=== PATIENT | male | born 1995 | race Caucasian/White ===

== ENCOUNTER 2020-02-07 12:11 | Emergency (ER) | payer OTHER ==
[2020-02-07 12:18] VITALS: BP 150/84
[2020-02-07] MEDS ORDERED: CLINDAMYCIN 150 MG CAPSULE PO STA (12:52)
[2020-02-07] MEDS ORDERED: DEXAMETHASONE 10 MG/ML VIAL IM STA (12:52)
--- NOTE | 2020-02-07 12:55 | ED Physician Documentation ---
History of Present Illness - Stated complaint Stated Complaint: SORE THROAT - Chief complaint Chief Complaint: Heent - History obtained from History obtained from: Patient - Additonal information Additional information: PT presents to the ED c/o ST for the past 5 days. No F/C, abd pain, or NV. No rhinorrhea, cough, or headache. [place] and tested for COVID and strep, but has not heard back regarding results yet. Pt states he's otherwise healthy. No trouble breathing. Pt states it hurts to swallow, but that he's been able to take ibuprofen tabs and drink water. Pt states he has not had any sick contacts with strep, flu, covid, or mono. No other complaints at this time. Review of Systems Ten Systems: 10 systems reviewed and negative Constitutional: reports: Reviewed and negative Eyes: reports: Reviewed and negative Ears: reports: Reviewed and negative Nose: reports: Reviewed and negative Throat: reports: Sore throat Cardiac: reports: Reviewed and negative Respiratory: reports: Reviewed and negative GI: reports: Reviewed and negative : reports: Reviewed and negative Skin: reports: Reviewed and negative Musculoskeletal: reports: Reviewed and negative Neurologic: reports: Reviewed and negative Psychiatric: reports: Reviewed and negative Endocrine: reports: Reviewed and negative Immunocompromised: reports: Reviewed and negative PD PAST MEDICAL HISTORY - Past Medical History Past Medical History: No - Past Surgical History Past Surgical History: Yes General: Appendectomy - Present Medications Home Medications: Ambulatory Orders Medication Instructions Recorded Confirmed Clindamycin HCl [Clindamycin 300MG 300 mg PO Q6H #28 capsule 02/07/20 CAP] predniSONE [Prednisone] 60 mg PO DAILY 5 Days #15 tablet 02/07/20 - Allergies Allergies/Adverse Reactions: Allergies Allergy/AdvReac Type Severity Reaction Status Date / Time No Known Drug Allergies Allergy Verified 02/07/20 12:18 - Social History Does the pt smoke?: No Smoking Status: Never smoker Does the pt drink ETOH?: No Does the pt have substance abuse?: No - Immunizations Immunizations are current?: Yes PD ED PE NORMAL - Vitals Vital signs reviewed: Yes - General General: Alert and oriented X 3, No acute distress - HEENT HEENT: Atraumatic, PERRL, EOMI, Ears normal, Moist mucous membranes, Other (Pt has 3+ tonsils bilaterally, with exudates visible. Pt has mild lowering of the soft palate on the L side.) - Neck Neck: Supple, no meningeal sign, Other (mild bilateral anterior cervical LAD) - Cardiac Cardiac: RRR, No murmur - Respiratory Respiratory: Clear bilaterally - Abdomen Abdomen: Normal bowel sounds, Soft, Non tender, Non distended - Derm Derm: Warm and dry - Extremities Extremities: No deformity - Neuro Neuro: Alert and oriented X 3 - Psych Psych: Normal mood, Normal affect Results - Vitals Vitals: Oxygen O2 Source Room air PD MEDICAL DECISION MAKING - ED course Complexity details: re-evaluated patient, considered differential, d/w patient ED course: The pt looked fairly well, overall, and was managing secretions without difficulty. There was no sign of airway compromise. I felt the pt should be started on abx for his exudative pharyngitis. I have d/w pt that based on the appearance of his L soft palate, he may have a small or early peritonsillar abscess. However, it is unlikely that attempts to aspirate in the ED would be successful today, based on the small size, and at this point, antibiotic therapy alone will likely be helpful. Ihave given the pt a dose of clindamycin and of decadron in the ED. He has been given Rx for clindamycin and prednisone for home. He is advised to return to the ED immediately, should he at all feel that his airway is in danger of compromise. Departure - Departure Disposition: 01 Home, Self Care Clinical Impression: Exudative pharyngitis, Peritonsillar abscess Condition: Stable Instructions: ED Peritonsillar Abscess, ED Strep Pharyngitis Poss Follow-Up: Berry Sanford MD [Physician No Access] - Prescriptions: Clindamycin HCl [Clindamycin 300MG CAP] 300 mg PO Q6H #28 capsule predniSONE [Prednisone] 60 mg PO DAILY 5 Days #15 tablet Comments: Your throat has the appearance of a bacterial infection, and you have some swelling of the soft part of the roof of your mouth back by your left tonsil. This may indicate a small abscess. Most peritonsillar abscesses will resolve on their own with antibiotics. Please take the antibiotics every day, as directed, and take the prednisone to help with swelling. You may also use ibuprofen and Tylenol for the swelling and discomfort. Gargling with ice water can also be helpful to ease the pain and swelling. You should call tomorrow morning to make an appointment for follow-up with your doctor for later on this week, and you may also follow-up with Dr. Berry Sanford, And ear nose throat specialist in [place], if you do not feel that your swelling is improving over the next couple of days. If you feel like the swelling is getting worse and you are having difficulty breathing, you should return to the emergency department immediately. Discharge Date/Time: 02/07/20 13:10
== END 2020-02-07 13:10 | disposition home or self-care (01) ==
LOC: ED 12:11
DX: J36 Peritonsillar abscess (principal)
CPT/HCPCS: 96372; 99283; 99284; A9270